=== PATIENT | male | born 1980 | race Two or more races ===

== ENCOUNTER 2025-01-18 18:27 | Emergency (ER) | payer MEDICAID, SELFPAY ==
[2025-01-18 18:29] VITALS: BMI 27.8
[2025-01-18 18:37] VITALS: BP 113/67; PULSE 64; RESP 18; TEMP 36.4; O2SAT 97
--- NOTE | 2025-01-18 18:59 | PD.EDRME ---
Rapid Medical Screening Exam RME Arrival date/time: 01/18/25 18:27 44 yo m present to ED for c/o of urinary retention I have greeted and performed a focused initial assessment of this patient. A comprehensive ED assessment and evaluation of the patient, analysis of all test results, and completion of the medical decision making process will be conducted by additional ED providers. Chief Complaint: Urogenital-Male Time Seen by Provider: 01/18/25 18:39 Vital signs: Vital Signs Temperature 97.6 F 01/18/25 18:37 Pulse Rate 64 01/18/25 18:37 Respiratory Rate 18 01/18/25 18:37 Blood Pressure 113/67 01/18/25 18:37 Pulse Oximetry (%) 97 01/18/25 18:37 Oxygen Delivery Method Room Air 01/18/25 18:37
[2025-01-18 19:25] LABS: Basophils % (Auto) 0 % (0-2.5); Eosinophils # (Auto) 0.2 Thou/mm3 (0.0-0.5); Eosinophils % (Auto) 3 % (0-10); Hematocrit 40.8 % (41.0-53.0); Hemoglobin 14.4 g/dL (13.5-16.0); Immature Granulocytes % (Auto) 0 % (0-0); Immature Granulocytes Auto 0.01 Thou/mm3 (0.00-0.00); Lymphocytes # (Auto) 2.2 Thou/mm3 (1.0-4.8); Lymphocytes % (Auto) 37 % (10-50); Mean Corpuscular HGB Conc 35.3 g/dl (31.0-37.0); Mean Corpuscular Hemoglobin 30.6 pg (25.0-35.0); Mean Corpuscular Volume 87 fL (80-100); Monocytes # (Auto) 0.4 Thou/mm3 (0.0-0.8); Monocytes % (Auto) 6 % (0-12); Neutrophils # (Auto) 3.3 Thou/mm3 (1.8-7.7); Neutrophils % (Auto) 54 % (37-80); Nucleated Red Blood Cell % 0 /100 WBC (0); Platelet Count 182 Thou/mm3 (140-440); RDW Standard Deviation 39.6 fL (35.1-43.9); Red Blood Count 4.71 Miln/mm3 (4.50-5.90); White Blood Count 6.1 Thou/mm3 (3.8-10.6)
[2025-01-18 19:48] LABS: Alanine Aminotransferase 18 U/L (10-49); Albumin, Serum 4.7 gm/dL (3.5-5.0); Albumin/Globulin Ratio 1.6 (1.2-2.2); Alkaline Phosphatase 55 U/L (46-116); Anion Gap 10 (7-16); Aspartate Amino Transferase 21 U/L (0-34); BUN/Creatinine Ratio 14 Ratio (12-20); Bilirubin,Total 0.4 mg/dL (0.3-1.2); Blood Urea Nitrogen 14 mg/dL (9-23); Calcium 9.9 mg/dL (8.3-10.6); Calcium (Corrected) 9.9 mg/dL (8.5-10.1); Carbon Dioxide 25.9 mMol/L (20.0-31.0); Chloride 107 mMol/L (98-107); Estimated Creatinine Clearance 108.6 mL/min (>60); Globulin 2.9 gm/dL (2.3-3.5); Glucose 97 mg/dL (74-106); Osmolality,Calculated 285 (275-295); Potassium 3.9 mMol/L (3.4-5.1); Sodium 143 mMol/L (136-145); Total Protein 7.6 gm/dL (5.7-8.2); eGFR > 60 See Note
[2025-01-18 20:58] LABS: Collection Type, Urine Voided; Squamous Epithelial Cell,Urine 0 /hpf (0-5)
[2025-01-18 21:06] LABS: Bilirubin,Urine Negative (Negative); Blood,Urine Negative (Negative); Clarity,Urine Clear (Clear/Hazy); Color,Urine Colorless (Lt Yel-Yel); Glucose, Urine Negative (Negative); Ketones,Urine Negative (Negative); Leukocyte Esterase,Urine Negative (Negative); Nitrite,Urine Negative (Negative); PH,Urine 5.5 (5.0-7.0); Protein,Urine Negative (Neg - Trace); RBC,Urine < 1 /hpf (0-3); Specific Gravity,Urine 1.005 (1.001-1.035); Urobilinogen,Urine Negative mg/dL (0.0-1.0); WBC,Urine < 1 /hpf (0-5)
--- NOTE | 2025-01-18 22:12 | EDNOTE_ITS ---
ED Male Genitalurinary RME/HPI General Chief complaint: Urogenital-Male Stated complaint: DIFFICULTY URGENCY TO URINATE X5HR Time Seen by Provider: 01/18/25 18:39 Arrival date/time: 01/18/25 18:27 44 year old male present to emergency room with c/o of difficulty urinating for 5 hours pt report dripping. pt report recently drink 6 pack of alcohol, after 6 months of not drinking. SEVERITY: Symptoms are described as being severe with limitations on activities of daily living CONTEXT: The patient is unable to identify any inciting events. DURATION/TIMING: The symptoms started approximately [employer] SYMPTOMS:urgency,frequency MODIFYING FACTORS: The patient is unable to identify any alleviating or aggravating symptoms. PERTINENT ROS: no fevers, no chest pain/shortness of breath no nausea,vomiting, diarrhea, no dizziness/headache no rash no loc/syncope episode no abd/back pain, hematuria , trauma /injury, scrotum pain REVIEW OF SYSTEMS: See History of Present Illness - with the exception of those mentioned in the history of present illness, all other systems reviewed and reported as negative GENERAL: In general the patient is awake, interactive, in an emergency department gurney. HEAD/EYES/EARS/NOSE/THROAT: normo-cephalic, atraumatic, mucus membranes are moist, anicteric, palpebral conjunctiva is pink, trachea is midline. CARDIOVASCULAR: regular rate and regular rhythm, no murmurs, heart sounds are not distant, strong pulses in all four extremities that are equal and symmetric bilateral upper and lower extremities, normal capillary refill. CHEST/PULMONARY: normal chest rise and fall, good air movement, clear to auscultation bilaterally, normal inspiratory to expiratory ratios without evidence of respiratory distress. NECK: No midline/Paraspinal tenderness, no step off ROM/Strenght intact No Kernig and bruzinski sign. No trauma ABDOMEN: soft, not tender, no masses appreciated BACK: normal range of motion without pain. NEUROLOGICAL: cranio-facial features are symmetric, moves all four extremities equally without obvious limitations or weakness. EXTREMITY: no tenderness to palpation over the long bones or large joints of the bilateral upper and lower extremities, no joint swelling, no joint erythema, no signs of trauma, no unilateral leg swelling and no peripheral edema. SKIN: warm, dry, well-perfused, no jaundice, no rash, no telangiectasias or petechia. PSYCH: calm, cooperative, no evidence of psychosis or agitation RME / HPI RME / HPI Narrative: 01/18/25 18:27 44 yo m present to ED for c/o of urinary retention I have greeted and performed a focused initial assessment of this patient. A comprehensive ED assessment and evaluation of the patient, analysis of all test results, and completion of the medical decision making process will be conducted by additional ED providers. Related Data Previous Rx's ?Medication ?Instructions ?Recorded ibuprofen 800 mg tablet 800 mg PO TID PRN pain #30 t abs 11/22/19 tamsulosin 0.4 mg capsule (Flomax) 0.4 mg PO QDAY #10 caps 01/18/25 Allergies Allergy/AdvReac Type Severity Reaction Status Date / Time No Known Allergies Allergy Verified 01/18/25 18:30 Course Course Course Narrative: with one day of acute urinary retention. Well appearing/nonseptic. Tolerating PO. ED Workup: UA ED Interventions: Catheter placement rx: flomax, will return in 3-7 days for urinating trial while on flomax advised pt to follow up with PCP Patient exam and history not consistent with cauda equina, infectious etiology, constipation based retention/intraabdominal mass/AAA, trauma, nephro/urolithiasis, drug reaction, cancer. Disposition: Discharge with catheter placed to leg bag and urology follow up within 1 week. Strict return precautions and catheter care discussed. HPI Denies recent infectious symptoms such as fever, dysuria, rigors. Denies recent blunt back trauma or penile trauma. Denies colicky back/groin pain or history of nephro/urolithiasis. No recent sedation/analgesia, anticholinergic, opioid, TCA, sympathomimetic use. Nonsmoker. Quality Measures none Orders Category Date Time Status Bladder Scan NEEDED Care 01/18/25 18:54 Active Ross [Urinary Catheter] QS Care 01/18/25 18:54 Active Ross to Leg Bag Routine Care 01/18/25 22:12 Ordered CBC Stat Lab 01/18/25 19:09 Completed CMP [Comprehensive Metabolic Panel] Stat Lab 01/18/25 19:09 Completed PSA [Prostate Specific Antigen] Stat Lab 01/18/25 19:09 Received UA [Urinalysis] Stat Lab 01/18/25 20:38 Completed Urine Culture Stat Lab 01/18/25 20:38 Received Reevaluation(s) Reevaluation #1: patient is feeling better, ross 500cc of urine, clear no gross hematuria Vital Signs Vital signs: Vital Signs Temperature 97.6 F 01/18/25 18:37 Pulse Rate 64 01/18/25 18:37 Respiratory Rate 18 01/18/25 18:37 Blood Pressure 113/67 01/18/25 18:37 Pulse Oximetry (%) 97 01/18/25 18:37 Oxygen Delivery Method Room Air 01/18/25 18:37 Urogenital - Male Patient data External records reviewed:: [facility] previous records Clinical information provided by:: patient Social determinants that could affect healthcare access:: none Patient has the following chronic illnesses:: n/a How is presenting disease/condition affected by chronic disease/condition?: no chronic disease Evaluation data The following diagnostics were reviewed and interpreted by me:: lab results Lab and/or radiology exams considered but not ordered:: n/a Interpretation Summary: cbc/cmp/urine no infection psa pending Medications / Prescriptions Medications or Prescriptions considered but not ordered:: n/a Medication administrations:: n/a Consultations Consultation(s) initiated? (list below): No Diagnosis Urogenital Male Differential Diagnosis: urinary tract infection, prostatitis and acute retention of urine Most likely diagnosis given after review of the tests above:: urinary retention Admission Indicated Admission indicated?: not indicated Admission Request Was there a request for admission?: No Disposition Plan Disposition Plan: Discharge Discharge Attestation Discharge Attestation: The patient and all family members were given an opportunity to ask questions and understood the discharge instructions. Discharge instructions specifically effects, indications for sooner follow up or return to the emergency department, and the expected course of current diagnosis. Patient condition: Stable Discharge Plan Plan Patient Disposition: HOME (Self Care) Prescriptions/Referrals Prescriptions/Med Rec: New tamsulosin [Flomax] 0.4 mg capsule 0.4 mg PO QDAY Qty: 10 0RF No Action ibuprofen 800 mg tablet 800 mg PO TID PRN (Reason: pain) Qty: 30 0RF Referrals: No Primary/Family,Physician [Primary Care Provider] - In 1 week Problem List Clinical Impression: Acute urinary retention Patient/Caregiver Discharge Instructions Education Materials: ED Ross Catheter, Care, ED Urinary Retention, Male Print Language: Slovak Stand Alone Forms: Mara Award Info., Patient Portal Info Letter
[2025-01-18 22:28] LABS: Prostate Specific Antigen 0.56 ng/mL (0-4.00)
== END 2025-01-18 23:01 | disposition home or self-care (01) ==
PROVIDERS: Physician Assistant; Emergency Provider Emergency Medicine
DX: R33.9 Retention of urine, unspecified (principal)
CPT/HCPCS: 51702; 36415; 80053; 81001; 84153; 85025; 87086; 99283